=== PATIENT | female | born 1970 ===

== ENCOUNTER 2016-09-25 21:32 | Emergency (ER) | payer BC ==
--- NOTE | 2016-09-29 19:14 | ER ---
ADMIT: 09/25/2016 RM/LOC: ER [facility] MR#: [id number] [facility] [address] [place] [id number] JEZ UMAÑADAHIANA [address] [place] [address] Emergency Room Report SEX: F AGE: 46 : 1970 DATE: 09/25/2016 HISTORY OF PRESENT ILLNESS: The patient is a 46-year-old female with chief complaint of right headaches. The patient states she had headaches since last night and Imitrex was given, it subdued the headache. The patient states that she had a history of migraine headache with similar symptoms, and she had multiple headaches a month. The patient states the quality and quantity of the pain is very similar to previous headaches. The patient denies any loss of vision or visual changes, and also neck pain or neck stiffness or fever. The patient was nauseous and has some photophobia and sensitive to light and noise, which per the patient is her baseline for migraine headaches. The patient denies any recent trauma or travel. PHYSICAL EXAMINATION: HEAD and NECK: Normal. GENERAL: The patient was mild to moderately distressed and anxious. VITAL SIGNS: The patient was afebrile in the ER. CHEST: Clear. HEART: Normal heart sounds. ABDOMEN: Soft. NEURO: Grossly normal. ASSESSMENT AND PLAN: The patient received 1 L of normal saline IV fluids and Benadryl and Reglan IV, and headache was completely resolved. The patient was reassured. The patient has no meningismus and no focal deficit. The patient was discharged to home, return precautions, follow up with the primary doctor as needed. DIAGNOSIS: Acute on chronic cephalgia. Jesse Hernadnes MD/ cyndy JOB #: [id number] CC: Lg Barriga MD, Attending Physician Dahiana Carias MD, Family Physician
== END 2016-09-25 23:05 | disposition home or self-care (01) ==
LOC: ER 21:32
DX: G89.29 Other chronic pain (principal); R51 Headache